=== PATIENT | female | born 1975 | race Caucasian/White ===

== ENCOUNTER 2017-09-28 10:16 | Outpatient (CLI) | payer BC, MEDICARE | END 2017-09-28 10:17 | disposition home or self-care (01) | LOC: BICRAD 10:16 | PROVIDERS: ATTEND Chiropractor | DX: M25.552 Pain in left hip (principal) ==

== ENCOUNTER 2017-12-09 15:23 | Outpatient (CLI) | payer BC, MEDICARE ==
--- NOTE | 2017-12-09 16:18 | RAD ---
RADIOGRAPH RIGHT HIP 2 VIEWS: 12/09/17 HISTORY: 42-year-old female with bilateral hip pain. FINDINGS: Hip joint space is maintained. Femoral head contour is maintained. No subcapital, or moderate or larg e acetabular, osteophytes. No fracture or dislocation. No destructive osseous lesion. There are posts urgical changes including sclerosis and tiny metallic markers, at the lumbosacral junction, incomplet kt imaged. IMPRESSION: 1) Normal plain radiographic appearance of the right hip. 2) Post surgical changes of lumbosacral junction. POS: ESSENCE
== END 2017-12-09 15:24 | disposition home or self-care (01) ==
LOC: TBSIIMAG 15:23
PROVIDERS: ATTEND Neurological Surgery
DX: M54.5 Low back pain (principal); M25.559 Pain in unspecified hip; Z98.890 Other specified postprocedural states

== ENCOUNTER 2018-01-28 10:57 | Outpatient (CLI) | payer BC, MEDICARE ==
--- NOTE | 2018-01-28 12:44 | RAD ---
LUMBAR SPINE 5 VIEWS: HISTORY: A 43-year-old female with a history of spondylolisthesis. FINDINGS: The exam includes standing, flexion, and extension views. Extensive laminectomy changes are noted at L4 and L5 and posterior fusion. Disk space narrowing is n oted at L4-L5 and L5-S1 with intradiskal prosthesis at L5-S1. No abnormal translation between flexio n and extension. IMPRESSION: Extensive postoperative changes at L4 and L5. No abnormal translation between flexion and extension. POS: ESSENCE
== END 2018-01-28 10:58 | disposition home or self-care (01) ==
LOC: RAD 10:57
PROVIDERS: ATTEND Nurse Practitioner Family
DX: M43.16 Spondylolisthesis, lumbar region (principal); Z98.1 Arthrodesis status
CPT/HCPCS: 72120

== ENCOUNTER 2020-04-18 08:34 | Outpatient (CLI) | payer MEDICARE ==
--- NOTE | 2020-04-18 10:51 | MMO ---
Bilateral MAMMO Bilat Screen [facility]. CLINICAL HISTORY: Patient is 45 years old and is seen for screening. The patient has no family history of breast cancer. The patient has no personal history of cancer. VIEWS: The views performed were: bilateral craniocaudal with tomosynthesis; bilateral mediolateral oblique with tomosynthesis; and bilateral exaggerated craniocaudal. FILMS COMPARED: The present examination has been compared to a prior imaging study performed at [facility] on 03/24/2017. This study has been interpreted with the assistance of computer-aided detection. MAMMOGRAM FINDINGS: The breasts are heterogeneously dense, which could obscure a lesion on mammography. Benign calcifications are noted bilaterally. There are no suspicious masses, suspicious calcifications, or new areas of architectural distortion. IMPRESSION: THERE IS NO MAMMOGRAPHIC EVIDENCE OF MALIGNANCY. A ROUTINE FOLLOW-UP MAMMOGRAM IN 1 YEAR IS RECOMMENDED. THE RESULTS OF THIS EXAM WERE SENT TO THE PATIENT. ACR BI-RADS Category 2 - Benign finding MAMMOGRAPHY NOTE: 1. A negative mammogram report should not delay a biopsy if a dominant of clinically suspicious mass is present. 2. Approximately 10% to 15% of breast cancers are not detected by mammography. 3. Adenosis and dense breasts may obscure an underlying neoplasm. Reported by: JAYY VALVERDE MD Electonically Signed: [id number]
== END 2020-04-18 08:35 | disposition home or self-care (01) ==
LOC: BICMAMMO 08:34
PROVIDERS: ATTEND Family Medicine
DX: Z12.31 Encounter for screening mammogram for malignant neoplasm of breast (principal)
CPT/HCPCS: 77063; 77067

== ENCOUNTER 2022-12-15 15:20 | Outpatient (CLI) | payer MEDICARE | END 2022-12-15 15:21 | disposition home or self-care (01) | LOC: RAD 15:20 | PROVIDERS: ATTEND Anesthesiology Pain Medicine | DX: M43.16 Spondylolisthesis, lumbar region (principal) | CPT/HCPCS: 72100 ==

== ENCOUNTER 2022-12-16 10:03 | Outpatient (CLI) | payer MEDICARE ==
[2022-12-16] MEDS ORDERED: Magnevist 469MG/ML 20 ML VIAL ONE (11:49)
== END 2022-12-16 10:04 | disposition home or self-care (01) ==
LOC: BICMRI 10:03
PROVIDERS: ATTEND Neurological Surgery
DX: M54.50 Low back pain, unspecified (principal); M47.816 Spondylosis without myelopathy or radiculopathy, lumbar region; Z98.890 Other specified postprocedural states
CPT/HCPCS: 72158; 82565

== ENCOUNTER 2023-02-02 10:55 | Outpatient (CLI) | payer MEDICARE | END 2023-02-02 10:56 | disposition home or self-care (01) | LOC: BICMAMMO 10:55 | PROVIDERS: ATTEND Family Medicine | DX: Z12.31 Encounter for screening mammogram for malignant neoplasm of breast (principal) | CPT/HCPCS: 77063; 77067 ==